=== PATIENT | female | born 1990 | race Caucasian/White ===

== ENCOUNTER 2023-07-12 14:23 | Outpatient (CLI) | payer OTHER, SELFPAY | END 2023-07-12 14:24 | disposition home or self-care (01) | PROVIDERS: Visit Provider Obstetrics & Gynecology | DX: Q51.28 Other and unspecified doubling of uterus (principal) | CPT/HCPCS: 84146; 84443 ==

== ENCOUNTER 2024-03-18 12:02 | Outpatient (REF) | payer OTHER, SELFPAY ==
--- OUTSIDE RECORDS SUMMARY | 2024-03-18 12:06 | XMS_ITS | Clinical Summary ---
Author Organization [email or web address] [facility] Address [place], [place] [address] Care Team Providers Care Director Clinical Applications Name Role Phone Pcp, No Primary Care Provider Unavailabl e Allergies No known active allergies Medications No known medications Active Problems Problem Noted Date Diagnosed Date Stress fracture of fibula 05/26/2009 Social History Tobacco Use Types Packs/Day Years Used Date Smoking Tobacco: Never Smokeless Tobacco: Never Alcohol Use Standard Drinks/Week Comments Not Asked 0 (1 standard drink = 0.6 oz pur e alcohol) Sex and Gender Information Value Date Recorded Sex Assigned at Not on file Gender Identity Not on file Sexual Orientation Not on file Obstetrics History Last Filed Vital Signs Vital Sign Reading Time Taken Comments Blood Pressure 116/61 10/01/2013 12:11 PM CDT Pulse 97 10/01/2013 12:11 PM CDT Temperature 36.7 ??C (98.1 ??F) 10/01/2013 12:11 PM C DT Respiratory Rate 16 10/01/2013 12:11 PM CDT Oxygen Saturation 98% 10/01/2013 12:11 PM CDT ra Inhaled Oxygen Concentration - - Weight 46.3 kg (102 lb) 05/26/2009 10:43 AM STAFF RESEARCH SCIENTIST Height - - Body Mass Index - - Plan of Treatment Health Maintenance Due Date Last Done Comments Tdap 07/14/2002 Depression screening for age 12+ 2003 HIV for age 15-65 07/14/2006 BMI (ht and wt on same day) for age 18+ 07/14/2009 Hepatitis C screening for ag e 18-79 07/14/2009 Tetanus booster 2011 Pap test for age 21-65 03/10/2021 8, 03/10/2018, 06/17/2015 COVID-19 vaccine series (2023- season) 2024 Influenza for age 9-49 01/05/2024 Pneumococcal series for age 6-64 Aged Out No longer eligible b ased on patient's age to complete this topic Procedures Procedure Name Priority Date/Time Associated Diagnosis Comments BUILDING ASSOCIATE THIN PREP PAP SCREEN IMAGED Routine 03/10/2018 12:00 PM STAFF RESEARCH SCIENTIST from Last 3 Months or Most Recently Relevant to Health Maintenance Results * BUILDING ASSOCIATE THIN PREP PAP SCREEN IMAGED (03/10/2018 12:00 PM STAFF RESEARCH SCIENTIST) Case Report Gynecologic Cytology Report ? Case: [id number] ? Authorizing Provider: ??Tracy Cornejo MD ? Collected: ? 03/10/2018 1200 ? First Screen: ?Divya Tello ? Received: ?03/12/2018 0926 ? Specimen: ?BUILDING ASSOCIATE ThinPrep Vial Screening, Cervical, right cervix ? 03/21/2018 5:57 PM STAFF RESEARCH SCIENTIST [facility] INTERPRETATION/ RESULT NEGATIVE FOR INTRAEPITHELIAL LESION OR MALIGNANCY (NIL) (none) 03/21/2018 5:57 PM STAFF RESEARCH SCIENTIST [facility] IMEN ADEQUACY Satisfactory for evaluation No endocervical component seen in a patient 03/21/2018 5:57 PM STAFF RESEARCH SCIENTIST [facility] HPV REQUEST HPV if ASCUS 03/21/2018 5:57 PM STAFF RESEARCH SCIENTIST [facility] Date of LMP 12/23/2017 03/21/2018 5:57 PM STAFF RESEARCH SCIENTIST [facility] Last Pap Date 06/17/2015 03/21/2018 5:57 PM STAFF RESEARCH SCIENTIST [facility] Last Pap Result NIL 8 5:57 PM STAFF RESEARCH SCIENTIST [facility] Menstrual Status 03/21/2018 5:57 PM STAFF RESEARCH SCIENTIST [facility] Automated Review Successful 03/21/2018 5:57 PM STAFF RESEARCH SCIENTIST [facility] Comment:Specimen processed s uccessfully by automated cyber security administrator device, ThinPrep Imaging System, [employer] Note The pap test is a screening technique, not a diagnostic procedure. ??It is used primarily to screen for squamous cancers and precursor lesions. ??Published studies have shown that it is subject to both false negative and false positive results. ??The pap test should not be used as the sole means to diagnose or exclude pre-malignant and malignant lesions. Cytology is screened and interpreted at [facility] - [address], [place] [address] and [facility] - [address]; [place] [address] [address] [facility] - [address]; [place] [address] and [facility] [address]; [place] [address] 03/21/2018 5:57 PM STAFF RESEARCH SCIENTIST [facility] Other (Cervical) 03/10/2018 12:00 PM STAFF RESEARCH SCIENTIST 03/12/2018 9:26 AM STAFF RESEARCH SCIENTIST Tracy Cornejo MD PATHOLOGY/CYTOLOG Y [facility] [address] [place] [address], [place] from Last 3 Months or Most Recently Relevant to Health Maintenance Care Teams Director Clinical Applications Relationship Specialty Start Date End Date Pcp, No . PCP - General 10/01/13
[2024-03-19 19:18] LABS: Estradiol Premenol Female <20 pg/mL
[2024-03-20 00:56] LABS: Prolactin 6.5 ng/mL (2.8-29.2)
[2024-03-20 16:57] LABS: Luteinizing Hormone, Serum 5.4 IU/L
[2024-03-20 18:21] LABS: Anti-Mullerian Hormone 2.319 ng/mL (0.176-11.705)
== END 2024-03-18 12:03 | disposition home or self-care (01) ==
LOC: NPINS 12:02
PROVIDERS: Visit Provider Obstetrics & Gynecology
DX: Z31.41 Encounter for fertility testing (principal)
CPT/HCPCS: 82670; 83001; 83002; 83520; 84146

== ENCOUNTER 2024-03-23 08:43 | Outpatient (CLI) | payer OTHER, SELFPAY ==
--- NOTE | 2024-03-23 09:15 | CRLHL7_ITS ---
For Patients: As a result of the Century Cures Act, medical imaging exams and procedure reports are released immediately into your electronic medical record. You may view this report before your referring provider. If you have questions, please contact your health care provider. Indication: Fertility testing, hx of didelphic uterus, now unicornate (left removed) Technique: Routine hysterosalpingogram. Fluoroscopic time 49 seconds. IMPRESSION: Unicornuate uterine cavity on the right with normal patency of the right fallopian tube with spillage into the peritoneal cavity. No filling defect. No obstruction. Dictated by Figueroa Laura MD @ 03/23/2024 11:16:58 AM (Electronically Signed)
--- NOTE | 2024-03-23 11:46 | W.PM.GYNPROC ---
Procedure Note Date of procedure: 03/23/24 Will [facility] bill your pro fee for this procedure?: Yes Pre-op diagnosis: 1. 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 2. Secondary female infertility. Post-op diagnosis: Same. Procedure: Hysterosalpingogram. Anesthesia: none Complications: None. Surgeon: Bettye Solomon MD Condition: stable Findings: 2 cervices: one at 5 o'clock with normal-appearing os, the second slightly superior at 11 o'clock with os partially covered by tissue fold, visualized by moving tissue slightly to the patient's left. Unicornuate-appearing uterus, deflected to the patient's right, with normal caliber right fallopian tube, patent. Procedure Description: After obtaining informed consent, the patient was placed in the dorsal lithotomy position on the x-ray table. An open-sided bivalve speculum was introduced into the vagina and the cervices visualized. The superior cervical os (11 o'clock) was difficult to visualize, but there was cervical mucous extruding form behind the fold of tissue that was partially covering the os. The cervices and vagina were then prepped with Betadine. Given previous documentation that the inferior cervical canal at 5 o'clock was blind-ending and noncommunicating with the right uterine horn, I did not cannulate that cervix. I attempted to pass an os finder through the superior cervical os, but was unable to do so because of the obstructing tissue fold, even with use of a tenaculum. Finally, I gently grasped the overlying tissue fold and displaced it 1-2 mm to the patient's left, and was able to clearly visualize the underlying cervical os. A balloon tipped double-lumen catheter was then gently inserted through the cervical opening into the uterine cavity to the level of the fundus. The balloon was insufflated with 3 mL of air and pulled back slightly. The speculum was removed. The patient was repositioned in the supine position, covered, and the radiologist was called to the room. A hysterosalpingogram was then performed. A total of 9 cc of Optiray 300 water soluble contrast dye was injected through the double-lumen catheter under moderate pressure. There was immediate fill of the uterine cavity to the right cornua and immediate fill of the right fallopian tube and free spillage of dye into the pelvis. The balloon was deflated and additional pictures taken to further assess the uterine cavity. The catheter was removed. The patient tolerated the procedure well, though she did have moderate cramping discomfort during and just after the procedure. She was discharged to home in stable condition and to [facility].
== END 2024-03-23 08:44 | disposition home or self-care (01) ==
LOC: RAD 08:43
PROVIDERS: Visit Provider Obstetrics & Gynecology
DX: Z31.41 Encounter for fertility testing (principal); Q51.4 Unicornate uterus
CPT/HCPCS: 58340; 74740; A4649; Q9967

== ENCOUNTER 2024-06-22 15:36 | Outpatient (CLI) | payer BC, SELFPAY | END 2024-06-22 15:37 | disposition home or self-care (01) | LOC: NFLDREF 06-28 09:59 | PROVIDERS: Visit Provider Obstetrics & Gynecology | DX: Z34.81 Encounter for supervision of other normal pregnancy, first trimester (principal) | CPT/HCPCS: 84702 ==

== ENCOUNTER 2024-06-26 09:46 | Outpatient (CLI) | payer BC, SELFPAY | END 2024-06-26 09:47 | disposition home or self-care (01) | LOC: US 09:47 | PROVIDERS: Visit Provider Obstetrics & Gynecology | DX: Z34.91 Encounter for supervision of normal pregnancy, unspecified, first trimester (principal); Z3A.01 Less than 8 weeks gestation of pregnancy | CPT/HCPCS: 76817 ==

== ENCOUNTER 2024-07-14 13:53 | Outpatient (CLI) | payer BC, SELFPAY ==
--- NOTE | 2024-07-14 14:00 | CRLHL7_ITS ---
For Patients: As a result of the Century Cures Act, medical imaging exams and procedure reports are released immediately into your electronic medical record. You may view this report before your referring provider. If you have questions, please contact your health care provider. INDICATION: Follow-up viability. TECHNIQUE: Ultrasound OB pelvis transabdominal and transvaginal. Real-time guillermo-scale imaging of the pelvis was performed. COMPARISON: Ob ultrasound June 26, 2024. FINDINGS: Intrauterine gestation: Single. G sac is identified within the superior portion of uterus as opposed to lower uterine segment on a previous ultrasound. heart activity (bpm): Regular, 171. [place]-rump length: 1.7 cm. Estimated ultrasound age: 8 weeks 1 day. Estimated gestational age by LMP: 8 weeks 4 day ROSA by ultrasound: 02/22/2025 ROSA by LMP: 02/19/2025. Yolk sac: Normal. Perigestational hemorrhage: Small subchorionic hemorrhage measuring 2.0 x 1.2 x 1.9 cm.. Ovaries and adnexa: Unremarkable. Corpus luteal cyst is identified on right side. Suspicious pelvic fluid collections: None. IMPRESSION: 1. Single viable intrauterine with estimated gestational age of 8 weeks 1 day an ROSA of 02/22/2025. 2. Small subchorionic hemorrhage. Dictated by Manjeet Barkley MD @ 07/15/2024 11:11:59 AM (Electronically Signed)
== END 2024-07-14 13:54 | disposition home or self-care (01) ==
LOC: US 13:53
PROVIDERS: Visit Provider Physician Assistant
DX: Z34.91 Encounter for supervision of normal pregnancy, unspecified, first trimester (principal); O20.9 Hemorrhage in early pregnancy, unspecified; Z3A.08 8 weeks gestation of pregnancy
CPT/HCPCS: 76817

== ENCOUNTER 2024-07-14 15:10 | Outpatient (CLI) | payer BC, SELFPAY | END 2024-07-14 15:11 | disposition home or self-care (01) | PROVIDERS: Visit Provider Physician Assistant | DX: Z34.91 Encounter for supervision of normal pregnancy, unspecified, first trimester (principal); Z3A.08 8 weeks gestation of pregnancy | CPT/HCPCS: 82565; 82570; 83020; 83021; 84156; 84450; 84460; 84520; 85660; 86592; 86703; 86704; 86706; 86762; 86787; 86803; 86850; 86900; 86901; 87086; 87340 ==

== ENCOUNTER 2024-09-11 09:15 | Outpatient (CLI) | payer BC, SELFPAY | END 2024-09-11 09:16 | disposition home or self-care (01) | LOC: NFLDREF 09-12 08:08 | PROVIDERS: Visit Provider Obstetrics & Gynecology | DX: O26.892 Other specified pregnancy related conditions, second trimester (principal); Q60.0 Renal agenesis, unilateral; Z3A.16 16 weeks gestation of pregnancy | CPT/HCPCS: 82570; 84156 ==

== ENCOUNTER 2024-12-02 09:05 | Outpatient (CLI) | payer BC, SELFPAY | END 2024-12-02 09:06 | disposition home or self-care (01) | LOC: NFLDREF 12-10 03:23 | PROVIDERS: Visit Provider Obstetrics & Gynecology | DX: Z34.93 Encounter for supervision of normal pregnancy, unspecified, third trimester (principal); Z3A.28 28 weeks gestation of pregnancy | CPT/HCPCS: 86592 ==

== ENCOUNTER 2024-12-02 09:08 | Outpatient (CLI) | payer BC, SELFPAY ==
[2024-12-02 10:42] LABS: Protein Creatinine Ratio Urine 0.25 (0-0.19)
== END 2024-12-02 09:09 | disposition home or self-care (01) ==
LOC: NPINS 09:09
PROVIDERS: Visit Provider Internal Medicine Nephrology
DX: R39.89 Other symptoms and signs involving the genitourinary system (principal); R80.9 Proteinuria, unspecified
CPT/HCPCS: 82570; 84156

== ENCOUNTER 2024-12-02 09:10 | Outpatient (CLI) | payer BC, SELFPAY ==
--- NOTE | 2024-12-02 09:15 | CRLHL7_ITS ---
For Patients: As a result of the Cures Act, medical imaging exams and procedure reports are released immediately into your electronic medical record. You may view this report before your referring provider. If you have questions, please contact your health care provider. 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 Real-time guillermo-scale imaging of the fetus was performed. COMPARISON: Ob ultrasound 09/23/2024 FINDINGS: Gestation: Single Presentation: Cephalic Placenta location: Posterior, known marginal cord insertion is not well appreciated on this exam heart rate: 139 bpm Cervix: Both the right cervix and residual left cervix are not visualized. Single deepest pocket: 5.6 cm Biometry: BPD: 6.8 cm, 5th percentile HC: 24.6 cm, less than 3rd percentile AC: 24 cm, 30th percentile FL: 5.4 cm, 29th percentile FL/AC ratio: 22nd percentile HC/AC ratio: 1.03 Biometry Conclusions: US/AUA: 27 weeks, 5 days. ROSA: 02/26/2025 US/LMP: 28 weeks, 5 days. ROSA: 02/19/2025 Weight: 19 percentile. 1178 grams IMPRESSION: Single live intrauterine gestation measuring 27 weeks, 5 days with ROSA by ultrasound of 02/26/2025. Ultrasound dates are 7 days behind clinical dates. Estimated weight lies in the 19 percentile, with the head circumference less than 3rd percentile, and biparietal diameter in the 5th percentile. Dictated by Eunice Agarwal MD @ 12/07/2024 8:34:30 AM (Electronically Signed)
== END 2024-12-02 09:11 | disposition home or self-care (01) ==
LOC: US 09:10
PROVIDERS: Visit Provider Obstetrics & Gynecology
DX: Z34.92 Encounter for supervision of normal pregnancy, unspecified, second trimester (principal); Q51.28 Other and unspecified doubling of uterus; Z3A.27 27 weeks gestation of pregnancy
CPT/HCPCS: 76816; 82570; 84156; 86592

== ENCOUNTER 2024-12-15 12:34 | Outpatient (CLI) | payer BC, SELFPAY ==
[2024-12-15 14:02] LABS: Protein Creatinine Ratio Urine 0.26 (0-0.19)
== END 2024-12-15 12:35 | disposition home or self-care (01) ==
LOC: NPINS 12:36
PROVIDERS: Visit Provider Internal Medicine Nephrology
DX: O12.10 Gestational proteinuria, unspecified trimester (principal); Z3A.30 30 weeks gestation of pregnancy
CPT/HCPCS: 82570; 84156

== ENCOUNTER 2025-01-15 10:09 | Outpatient (CLI) | payer BC, SELFPAY ==
[2025-01-15 12:18] LABS: Protein Creatinine Ratio Urine 0.11 (0-0.19)
== END 2025-01-15 10:10 | disposition home or self-care (01) ==
LOC: NPINS 10:10
PROVIDERS: Visit Provider Internal Medicine Nephrology
DX: O12.13 Gestational proteinuria, third trimester (principal); Z3A.35 35 weeks gestation of pregnancy
CPT/HCPCS: 82570; 84156

== ENCOUNTER 2025-01-15 10:24 | Outpatient (CLI) | payer BC, SELFPAY ==
--- NOTE | 2025-01-15 10:15 | CRLHL7_ITS ---
For Patients: As a result of the Century Cures Act, medical imaging exams and procedure reports are released immediately into your electronic medical record. You may view this report before your referring provider. If you have questions, please contact your health care provider. INDICATION: Marginal Cord Insert and Duplication of the Uterus. (Sic) COMPARISON: None available. TECHNIQUE: Grayscale pelvic ultrasound via a transabdominal approach. FINDINGS: number: 1 Position: Cephalic. Placental Position: Right posterior. Amniotic fluid: DVP 5.4cm. heart rate: 144bpm. BPD: 8.3cm; 33 weeks and 3 days. Percentile:13% HC: 29.2cm; 32 weeks and 2 days. Percentile:<3% AC: 29.0cm; 33 weeks and 0 days. Percentile:9% FL: 6.2cm; 32 weeks and 2 days. Percentile:<3% US EGA: 32 weeks and 5 days US ROSA: 03/07/2025 Established ROSA: 02/19/2025 EFW: 2042gm, +/-306gm, corresponding to the 5th percentile for the established ROSA. BPP Score: Fluid: 2 Breathin Movement: 2 Tone: 2 Total: 8 Umbilical artery Doppler shows a systolic-diastolic ratio of 2.7. For the previously established gestational age of 35 weeks 0 days, the 95th percentile for SD ratio is 3.49. IMPRESSION: 1. Normal BPP score (8/8). 2. biometry corresponds to an EFW at the 5th percentile for the previously established gestational age consistent with small for gestational age. Normal umbilical artery Doppler systolic diastolic ratio of 2.7. 3. Re-demonstration a head circumference measuring 292 mm, corresponding to less than the 3rd percentile. For the previously established gestational age of 35 weeks 2 standard deviations below the mean is 290 mm. This is concerning for microcephaly. Clinical correlation is recommended as the potential significance of this finding. Dictated by Zac Amaya MD @ 01/15/2025 12:12:47 PM (Electronically Signed)
== END 2025-01-15 10:25 | disposition home or self-care (01) ==
PROVIDERS: Visit Provider Obstetrics & Gynecology
DX: O43.193 Other malformation of placenta, third trimester (principal); Z3A.35 35 weeks gestation of pregnancy
CPT/HCPCS: 76816; 76819; 76820

== ENCOUNTER 2025-01-19 09:17 | Outpatient (CLI) | payer BC, SELFPAY ==
--- NOTE | 2025-01-19 09:15 | CRLHL7_ITS ---
For Patients: As a result of the Cures Act, medical imaging exams and procedure reports are released immediately into your electronic medical record. You may view this report before your referring provider. If you have questions, please contact your health care provider. OB ULTRASOUND FOLLOW-UP/LIMITED, 01/19/2025 CLINICAL HISTORY: IUGR, Removal of left didelphis uterus. TECHNIQUE: Real time guillermo scale imaging of the fetus was performed. Transabdominal imaging performed. COMPARISON: 01/15/2025, 12/02/2024. FINDINGS: LMP: 05/15/2024. ROSA by LMP: 02/19/2025. GA: 35 weeks 4 days. Gestation: Single. Cervix: Not visualized. Positioning: Vertex. Amniotic Fluid: 10.6 cm ABEBA. 4.4 cm SDP. Placenta: Technique: TA. Placenta Position: Posterior. Dopplers: Heart Rate: 144 bpm. Umbilical Artery: 2.2 S/D. IMPRESSION: Umbilical artery S/D ratio 2.2, within normal limits. Figueroa Laura M.D. Diagnostic Radiologist [email or web address] Transcribed: 11:03 am DW/Dictated by: Figueroa Laura MD @ 01/19/2025 10:17:00 AM (Electronically Signed)
== END 2025-01-19 09:18 | disposition home or self-care (01) ==
LOC: US 09:17
PROVIDERS: Visit Provider Obstetrics & Gynecology
DX: O36.5930 Maternal care for other known or suspected poor fetal growth, third trimester, not applicable or unspecified (principal); Z3A.35 35 weeks gestation of pregnancy
CPT/HCPCS: 76815; 76820

== ENCOUNTER 2025-01-25 07:21 | Outpatient (CLI) | payer BC, SELFPAY ==
--- NOTE | 2025-01-25 07:15 | CRLHL7_ITS ---
For Patients: As a result of the Century Cures Act, medical imaging exams and procedure reports are released immediately into your electronic medical record. You may view this report before your referring provider. If you have questions, please contact your health care provider. LMP: 05/15/2024. ROSA by LMP: 02/19/2025. GA: 36w, 3d. Prior Surgery: Left duplicated uterus removed. Comparisons: 01/19/2025, 01/15/2025, 12/02/2024. Single. INDICATION: Intrauterine growth retardation. CERVIX: Not visualized. POSITIONING: Vertex. AMNIOTIC FLUID: 10.7 cm ABEBA. 3.5 cm SDP. PLACENTA: Technique: Transabdominal. PLACENTA POSITION: Posterior. DOPPLER: heart rate: 141 bpm. Umbilical artery: 2.5 S/D >34w=<3.5. IMPRESSION: 1. Amniotic fluid single deepest pocket 3.5 cm. ABEBA 10.7 cm. 2. Umbilical artery S/D ratio 2.5, within normal limits. Figueroa Laura M.D. Diagnostic Radiologist [email or web address] bM/Dictated by: Figueroa Laura MD @ 01/25/2025 3:37:00 PM (Electronically Signed)
== END 2025-01-25 07:22 | disposition home or self-care (01) ==
LOC: US 07:23
PROVIDERS: PCP Family Medicine; Visit Provider Obstetrics & Gynecology
DX: O36.5930 Maternal care for other known or suspected poor fetal growth, third trimester, not applicable or unspecified (principal); Z3A.36 36 weeks gestation of pregnancy
CPT/HCPCS: 76815; 76820

== ENCOUNTER 2025-01-29 05:49 | Inpatient (IN) | payer BC, SELFPAY ==
[2025-01-29] VITALS (24 sets, daily range): BP systolic 110–137; BP diastolic 65–84; PULSE 62–93; RESP 16–18; TEMP 36.2–37; O2SAT 96–100; BMI 31.5
[2025-01-29] MEDS: LACTATED RINGERS 1000 ML 1,000 ML 1200 ML IV (06:24)
[2025-01-29 06:31] LABS: Hematocrit* 36.1 % (33.0-51.0); Hemoglobin* 11.9 gm/dL (12.0-16.0); Immature Granulocytes Abs Auto 0.04 K/uL (0.00-0.30); Immature Granulocytes Pct Auto 0.5 %; Lymphocytes Absolute Auto 1.92 K/uL (0.90-2.90); Mean Corpuscular HGB Conc 33 gm/dL (32-36); Mean Corpuscular Hemoglobin 30 pg (26-34); Mean Corpuscular Volume 90 fL (80-100); RDW Coefficient of Variation % 13.4 % (11.5-15.5); Red Blood Count* 4.02 m/uL (4.00-5.20); White Blood Count* 8.03 K/uL (4.50-11.00)
[2025-01-29 06:33] LABS: Slide Review Reflex No
--- NOTE | 2025-01-29 06:59 | W.PM.LDBA ---
Subjective History of Present Illness Date Seen: 01/29/25 Narrative: Patient is being admitted to Labor and Delivery for 01/29/25. She is a 34 year old at 37 0/7 weeks gestation. Her full history and physical was dictated by Dr. Cornejo on 01/15. Please see this for details. Specific Issues/Plans [id number] Partner: , Dorian Children: Mary Rainey Baby: Girl! Declines gonorrhea /chlamydia H&P: 01/15 Dr. Cornejo # Congenital duplication of uterus: Uterine didelphys. L pato-hysterectomy and left salpingectomy 06/19/20 at time of 2nd Pato-hysterectomy involved opening right fundus. Cervices are in unusual locations Serial US for growth at 28 and 34 weeks Delivery at 37 weeks: Scheduled for 02/[address] Cornejo # Suspected growth restriction diagnosed 01/15 EFW 2042 g = 4.6%, AC 9%, BPD 12.6%, HC <3%, FL <3%, normal doppler, SDP 5.4 cm Weekly to twice weekly testing until delivery, to include UA doppler / ABEBA and NST Request peds at delivery #Marginal cord insertion Serial US for growth at 28 and 34 weeks # history of x 2, with pato-hysterectomy with the second Pato-hysterectomy involved opening right fundus. Repeat at 37 weeks; pending recommendations from [facility] recommends 39 weeks in their report; called to clarify: 37 weeks # history of preeclampsia with severe features ASA 81 mg Baseline pre E labs: Normal with the exception of pr/cr ratio: .45H 24 hour urine for protein: 367 Nephrology consult 11/18 To see again 04/2025 Spot prot:creatine each visit # solitary left kidney 11/18/2024: Protein to creatinine ratio at each visit with OB Repeat 24 hour urine April #Fresh test for 1hr GTT Imagin09/23/24: Level 2. 18 weeks, 5 days. Posterior placenta without previa. Marginal cord insertion. MVP 3.8 cm. EFW 37%, AC 43%, normal anatomy. Two cervices, both closed. 12/02: cephalic, SDP 5.6 cm, EFW 19%, AC 30%, BPD 4.9%, HC <3%, FL 29% 01/15: cephalic, EFW 2041 g = 4.6%, AC 9%, BPD 12.6%, HC <3%, FL <3%, normal doppler, SDP 5.4 cm Vaccinations: COVID: no Flu: no Tdap: Declined RSV: declined Last pap: [Only high-risk abnormal pap results in problem list] OB - Problem Based A/P Additional Plan (1) Previous delivery affecting : Status: Acute (2) growth restriction antepartum: Status: Acute OB Exam Physical Exam Vital signs: Temp Pulse Resp BP 97.8 F 74 16 130/80 01/29/25 06:13 01/29/25 06:13 01/29/25 06:13 01/29/25 06:13 Narrative: Physical exam: General: No acute distress Psych: Alert and oriented x3, full affect HEENT: Normocephalic, atraumatic Heart: Regular rate and rhythm, no murmur rub or gallop Lungs: Clear to auscultation bilaterally Abdomen: soft, nontender, gravid Lower extremities: No edema or erythema
[2025-01-29] MEDS: miSOPROStoL 800 MCG/4 TABLET PR (08:30)
--- NOTE | 2025-01-29 09:05 | P.NB_ITS ---
Nerve Block Nerve Block Time Seen by Provider: 09:21 Date Seen: 01/29/25 Type of block requested by surgeon for post-operative analgesia: TAP Side: bilateral Time out performed: Yes Verification of patient name: Yes Verification of date of : Yes Site marking: site marked Name of person performing procedure: Cheng Diaz Continuous monitoring Was continuous monitoring of O2 sat, B/P, property assessment monitor, recorded every 15 minutes?: Yes Procedure Checklist: sterile prep, needles and gloves Ultrasound guided. Images saved: Yes Medications given in 5ml increments after negative aspiration: Marcaine %: 0.25 mL: 30 Needle gauge: 20 and Exparel mL: 10 Needle gauge: 20 Patient tolerated procedure well: Yes Additional comments: Injected in 5 mL increments after negative aspiration Block Charges Block Charge (with Pro Fee): TAP Bilateral Use of Ultrasound Machine for Block: Yes- US Guidance/pain block
--- NOTE | 2025-01-29 09:06 | P.ANES_ITS ---
Anesthesia Charges Start Date/Time Anesthesia Start Date: 01/29/25 Anesthesia Start Time: 07:23 Stop Date/Time Anesthesia Stop Date: 01/29/25 Anesthesia Stop Time: 09:29 Coding CPT Codes CPT Codes: ANESTH CS DELIVERY - 43196 ([id number]) P2 - PATIENT W/MILD SYST DISEASE, QK - BABBITTER 2-4 CNCRNT ANES PROC, QX - VACUUM CLEANER ASSEMBLER SVC W/ MD MED DIRECTION
--- NOTE | 2025-01-29 09:06 | W.ANESCHARGE ---
Anesthesia Charges Start Date/Time Anesthesia Start Date: 01/29/25 Anesthesia Start Time: 07:23 Stop Date/Time Anesthesia Stop Date: 01/29/25 Anesthesia Stop Time: 09:29 Coding CPT Codes CPT Codes: ANESTH CS DELIVERY - 60287 ([id number]) P2 - PATIENT W/MILD SYST DISEASE, QK - BLANKET WASHER 2-4 CNCRNT ANES PROC, QX - RN APPEALS SVC W/ MD MED DIRECTION
--- NOTE | 2025-01-29 09:11 | P.ANES_ITS ---
Anesthesia Charges Start Date/Time Anesthesia Start Date: 01/29/25 Anesthesia Start Time: 07:23 Stop Date/Time Anesthesia Stop Date: 01/29/25 Anesthesia Stop Time: 09:29 Coding CPT Codes CPT Codes: ANESTH CS DELIVERY - 25960 ([id number]) P2 - PATIENT W/MILD SYST DISEASE, QK - SASH MAKER 2-4 CNCRNT ANES PROC, QX - BIOMEDICAL ENGINEERING INTERNSHIP SVC W/ MD MED DIRECTION
--- NOTE | 2025-01-29 09:11 | W.ANESCHARGE ---
Anesthesia Charges Start Date/Time Anesthesia Start Date: 01/29/25 Anesthesia Start Time: 07:23 Stop Date/Time Anesthesia Stop Date: 01/29/25 Anesthesia Stop Time: 09:29 Coding CPT Codes CPT Codes: ANESTH CS DELIVERY - 35431 ([id number]) P2 - PATIENT W/MILD SYST DISEASE, QK - MUSIC LEADER 2-4 CNCRNT ANES PROC, QX - MANAGER RETENTION SVC W/ MD MED DIRECTION
[2025-01-29] MEDS: LACTATED RINGERS 1000 ML 1,000 ML 125 ML IV (10:21)
--- NOTE | 2025-01-29 10:35 | W.PM.H&PU ---
History & Physical Update History & Physical Update H&P Reviewed and patient assessed: No changes noted
--- NOTE | 2025-01-29 10:35 | PM.OBPRCCS ---
Procedure Date of procedure: 01/29/25 Pre-op diagnosis: 1. 37 0/7 weeks gestation. 2. History of section x2. 3. History of congenital duplication of uterus, s/p rani-hysterectomy of left uterus and left salpingectomy during last , with opening of right fundus. 4. IUGR. Post-op diagnosis: same Procedure Done: Global Will [facility] bill your pro fee for this procedure?: Yes Blood Loss Measurement Type: QBL (774 mL) Bakri Used: No IV fluids (mL): 2,000 Urine Output (mL): 200 Urine Output Comment: clear Surgeon: Bettye Solomon MD Supervising Film Or Videotape Editor: Shira Leonardo, Anesthesia Type: Spinal and TAP Block Findings: Extensive adhesions between the fascia, rectus muscles, peritoneum, omentum, and uterine serosa. Pathologic adhesion between the mid body of the uterus and the anterior abdominal wall to the right of midline. Moderate adhesions between the bladder and lower uterine segment. Live-born female infant, cephalic presentation, loose nuchal cord x1, Apgars 7 and 9 at 1 and 5 minutes respectively. Weight 5 lb 1 oz. Small unicornuate uterus. Extremely thin lower uterine segment which was bulging prior to hysterotomy incision. Ovaries and right tube nonvisualized. Procedure Name: Repeat low transverse section with extensive lysis of adhesions. Procedure Description: After obtaining informed consent, the patient was taken to the operating room where spinal anesthesia was obtained and found to be adequate. She was prepared and draped in the normal sterile fashion in the dorsal supine position with a leftward tilt. A Pfannenstiel skin incision was made with a scalpel along the line of the patient's previous Pfannenstiel scar. This incision was carried down to the underlying layer of fascia with the Bovie. The fascia was incised in the midline and the incision extended laterally. The superior and inferior aspects of the fascial incision were grasped with Kaelyn clamps, elevated and the underlying rectus muscles dissected off sharply and with electrocautery. This dissection took an increased amount of time given the dense adhesions. The omentum was densely adherent to both the uterine serosa and the anterior peritoneum. The adhesions between the omentum and anterior peritoneum were isolated, doubly clamped, transected, and suture ligated with 0 Vicryl. Filmy adhesions between the omentum in uterine serosa and peritoneum were taken down with electric cautery. There was a dense pathologic adhesion between the peritoneum and uterine serosa to the right of midline that was doubly clamped, transected, and suture ligated with 0 Vicryl. The rectus muscles were then in the midline. The adhesions between the bladder and lower uterine segment were taken down bluntly. The Alin O retractor was then placed into the incision. The distal lower uterine segment was found to be bulging. The lower uterine segment was then incised in a transverse fashion above the bulging area with the scalpel. Upon entry into the uterus, clear amniotic fluid was noted. The uterine incision was extended laterally with blunt finger fractionation. The infant's head was delivered atraumatically, the nuchal cord was reduced over the head, and the remainder of the was delivered. The nose and mouth were suctioned with the bulb suction. The cord was doubly clamped and cut after a 30 second delay, and the infant was handed off the field to Karlie Osorio, for evaluation. The placenta was delivered spontaneously with umbilical cord traction and fundal massage. The uterus was cleared of all clots and debris. There was uterine atony with some brisk bleeding initially, that was controlled with uterine massage, IV Pitocin, tranexamic acid 1000 mg IV and 800 mcg misoprostol per rectum administered by the circulating nurse under the drape. The hysterotomy incision was then carefully inspected. There was an inferior extension along the right lateral aspect, and there was a separate transverse tear in the lower uterine segment approximately 1 cm below the hysterotomy incision that extended for about 3 cm. The transverse tear was reapproximated in a running fashion very carefully with a 0 Vicryl suture, as the tissues were quite thin. A separate figure of X suture of 0 Vicryl was placed to reinforce an area that tore through during the reapproximation. The inferior extension was also reapproximated in a running fashion with 0 Vicryl. Finally, the hysterotomy incision was reapproximated in a running locking fashion with a 0 chromic suture. The decision was made not to imbricate due to the thinness of the tissues. The gutters were irrigated and suctioned. Hemostasis was obtained using electrocautery where appropriate, and suture ligation where needed. Paula was placed over the raw edges. All instruments and retractors were removed. The anterior peritoneum was not reapproximated due to concerns about other close omental and bowel adhesions. The subfascial tissues were carefully inspected and hemostasis assured. The fascia was reapproximated in a running fashion with a looped 0 Maxon suture. The subcutaneous tissues were copiously irrigated. Hemostasis was assured. The skin was closed in a subcuticular fashion with 4-0 Vicryl. Surgical glue and dressing were applied. The patient tolerated the procedure well. Sponge, lap, needle, and instrument counts were reported as correct x2. The patient was taken to the recovery room, awake, and in stable condition. She did receive 2 grams of IV Ancef preoperatively. Complications: None. Pathology: specimen obtained, sent to pathology (Placenta) Surgery Debrief Performed: Yes Condition: stable Disposition: floor
[2025-01-30 03:41] VITALS: BP 105/65; PULSE 90; RESP 18; TEMP 36.6; O2SAT 97
[2025-01-30 06:12] LABS: Hemoglobin* 8.9 gm/dL (12.0-16.0)
--- NOTE | 2025-01-30 08:01 | PM.OBPNVD1 ---
OB - PN:Subj Subjective Date Seen: 01/30/25 Interval history: Lorna is a 34-year-old G5 now P 3-0-2-3 woman who is status post repeat on 01/29/2025 at 37 weeks, 0 days gestation. She has uterine didelphys but is status post left rani hysterectomy and left salpingectomy 06/19/2020 at time of 2nd cesareans. Her this time was in her right uterus. Intraoperative findings were notable for extensive pelvic adhesions and extremely thin lower uterine segment which was bulging prior to hysterotomy incision. She was delivered of a female infant with Apgars of 7 and 9, weight 5 lb and 1 oz. Narrative: She has no complaints today. She is and that is going well. She had no pain throughout the day yesterday, and only has a little soreness today. She is ambulating without difficulty. She denies any heavy bleeding. She is passing flatus and tolerating a regular diet. OB - PN: Obj Exam Physical Exam: Vital signs: Temp Pulse Resp BP Pulse Ox O2 Del Method 98 F 90 18 105/65 97 Room Air 01/30/25 03:41 01/30/25 03:41 01/30/25 03:41 01/30/25 03:41 01/30/25 03:41 01/30/25 03:41 Narrative: General: Pleasant, no acute distress Heart: Regular rate and rhythm, no murmur or gallop Lungs: Clear to auscultation bilaterally Abdomen: Normoactive bowel sounds. Soft, nontender, fundus below umbilicus. Dressing clean, dry, and intact Lower extremities: No edema or erythema OB - PN: Obj Data Labs Labs: Laboratory Results - last 24 hr 01/30/25 05:52 Hgb 8.9 L OB - PN: A/P Delivery Assessment and Plan (1) S/P repeat low transverse : Status: Acute Assessment and Plan: Appropriate postoperative course. Anticipate discharge tomorrow. (2) Congenital duplication of uterus: Problem details: Uterine didelphys. L rani-hysterectomy 06/19/20. Status: Chronic (3) Proteinuria affecting : Status: Acute Assessment and Plan: She is to follow up with Nephrology . (4) Congenital absence of right kidney: Status: Chronic Assessment and Plan: As above (5) Anemia associated with acute blood loss: Status: Acute Assessment and Plan: Begin ferrous sulfate q.o.d. (6) History of 3 sections: Problem details: R uterus breech 09/24/18. L primary fundal , L rani-hysterectomy, L salpingectomy 06/19/20. Repeat right hemiuterus 01/29/25 Status: Acute Assessment and Plan: Very thin lower uterine segment on yesterday's . We discussed concerns with any future pregnancies. Plan day: 1 Plan: routine care
[2025-01-30 08:44] VITALS: BP 113/69; PULSE 83; RESP 18
[2025-01-30] MEDS: FERROUS SULFATE 325 MG TABLET PO (09:53)
[2025-01-30] MEDS: DOCUSATE SODIUM 100 MG CAPSULE PO (09:54)
[2025-01-30] MEDS: IBUPROFEN 600 MG TABLET PO ×2 (15:46→21:47)
[2025-01-30 15:47] VITALS: BP 121/74; PULSE 92; RESP 18; O2SAT 97
[2025-01-30] MEDS: ACETAMINOPHEN 500 MG TABLET 1000 MG PO (23:08)
[2025-01-30 23:09] VITALS: BP 116/74; PULSE 83; RESP 16; TEMP 36.8
[2025-01-31] MEDS: IBUPROFEN 600 MG TABLET PO ×2 (04:42→11:34)
[2025-01-31] MEDS: DOCUSATE SODIUM 100 MG CAPSULE PO (07:15)
[2025-01-31] MEDS: ACETAMINOPHEN 500 MG TABLET 1000 MG PO (07:15)
[2025-01-31 08:40] VITALS: BP 116/71; PULSE 80; RESP 16; TEMP 36.6; O2SAT 96
--- NOTE | 2025-01-31 09:59 | PM.OBDSVD1 ---
DS: Providers Provider Date Seen: 01/31/25 Date of admission: 01/29/25 05:49 Primary care physician: Sandrine Reece MD Admitting Clinician: Bettye Solomon MD Attending Physician on discharge: Bettye Soloomn MD Date of Discharge: 01/31/25 DS: Diagnosis Discharge Diagnosis (1) Anemia associated with acute blood loss: Status: Acute (2) S/P repeat low transverse : Status: Acute (3) Congenital absence of right kidney: Status: Chronic (4) Proteinuria affecting : Status: Acute Exam Narrative: Exam Narrative: General: Pleasant, no acute distress Heart: Regular rate and rhythm, no murmur or gallop Lungs: Clear to auscultation bilaterally Abdomen: Normoactive bowel sounds. Soft, nontender, fundus at umbilicus. Incision clean, dry, and intact Lower extremities: No edema or erythema Const: Vital Signs, click to edit/add: Vital Signs - 24 hr 01/30/25 15:47 01/30/25 23:09 01/31/25 08:40 Temperature 98.3 F 97.9 F Pulse Rate [Pulse Oximeter] 92 83 80 Respiratory Rate 18 16 16 Blood Pressure [Ri ght Arm] 121/74 116/74 116/71 Pulse Oximetry 97 96 Oxygen Delivery Me thod Room Air Room Air Room Air OB - DS: Summary Hospital Course Hospital Course: Lorna is a 34-year-old G5 now P 3-0-2-3 woman who is status post repeat on 01/29/2025 at 37 weeks, 0 days gestation. She has uterine didelphys but is status post left rani hysterectomy and left salpingectomy 06/19/2020 at time of 2nd cesareans. Her this time was in her right uterus. Intraoperative findings were notable for extensive pelvic adhesions and extremely thin lower uterine segment which was bulging prior to hysterotomy incision. She was delivered of a female infant with Apgars of 7 and 9, weight 5 lb and 1 oz. the patient has done well. Today, on day #2, she has no complaints. Pain is very well controlled. She is her daughter without difficulty. She denies any heavy bleeding. She is tolerating oral iron. Peripartum Data Procedures: Procedures Operation Date: 01/29/25 07:15 Actual Procedure Side Surgeon p Repeat Section with extensive lysis of adhesions Not Applicable Shira Leonardo MD [place] Inf[facility] Gender: Female Time Spent with Patient Time attestation: Total time spent providing and/or coordinating discharge services: Discharge Plan Discharge Disposition: Home, Self-Care Date of Admission: 01/29/25 05:49 Attending Provider on Discharge: Tracy Cornejo Primary Care Provider: Sandrine Reece Condition: Stable Anticipated Discharge Date/Time: 01/31/25 10:02 Discharge Medications: New oxycodone 5 mg Tablet 5 - 10 mg PO Q4H PRN (Reason: Pain) Qty: 20 0RF Lanolin (HPA) 100 % Cream 1 applic topical Q1H PRNQty: 0 0RF acetaminophen 500 mg Tablet 1,000 mg PO Q6H PRN (Reason: Pain) Qty: 0 0RF docusate sodium 100 mg Capsule 100 mg PO DAILY Qty: 0 0RF ibuprofen 600 mg Tablet 600 mg PO Q6H PRN (Reason: Pain) Qty: 0 0RF ferrous sulfate 325 mg (65 mg iron) Tablet 325 mg PO Q48H Qty: 0 0RF Continued cholecalciferol (vitamin D3) 10 mcg (400 unit) capsule 10 mcg PO QDAY [id number] 3 fatty no.1 27-1-300 mg capsule 1 cap PO DAILY Discharge Orders: Discharge Order (Routine); Ordered 01/31/25 Ordered By: Tracy Cornejo Patient Education: OB Over the Counter Medication Information, OB /Breast Feeding Discharge Diet: Regular Follow Up Appointments: Sandrine Reece MD [Primary Care Provider, Family Practice] Tracy Cornejo MD [Staff Physician, OCEANOGRAPHY TEACHER] Forms: Patient Belongings, [facility] Instructions
== END 2025-01-31 11:51 | disposition home or self-care (01) | DRG 540 ==
PROVIDERS: Obstetrics & Gynecology; Admitting Provider Obstetrics & Gynecology; PCP Family Medicine; Visit Provider Obstetrics & Gynecology
PROC: 10D00Z1 Extraction of Products of Conception, Low, Open Approach (ICD-10-PCS; CPT 59514; principal; 2025-01-29 07:15)
DX: O34.211 Maternal care for low transverse scar from previous cesarean delivery (principal); O36.5930 Maternal care for other known or suspected poor fetal growth, third trimester, not applicable or unspecified; G89.18 Other acute postprocedural pain; O99.892 Other specified diseases and conditions complicating childbirth; N73.6 Female pelvic peritoneal adhesions (postinfective); O90.81 Anemia of the puerperium; D62 Acute posthemorrhagic anemia; O12.14 Gestational proteinuria, complicating childbirth; Q60.0 Renal agenesis, unilateral; Z90.79 Acquired absence of other genital organ(s); Q51.21 Complete doubling of uterus; Z3A.37 37 weeks gestation of pregnancy; Z37.0 Single live birth
CPT/HCPCS: 01961; 36415; 64488; 76942; 85018; 85025; 86592; 86850; 86900; 86901; 88307; A4314; A9270; J0665; J0666; J0690; J1100; J1885; J2274; J2371; J2405; J2590; J3010; J7120

== ENCOUNTER 2025-04-06 09:37 | Outpatient (CLI) | payer BC, SELFPAY ==
[2025-04-06 11:18] LABS: Appearance Urine Clear (Clear)
[2025-04-06 11:34] LABS: Protein Creatinine Ratio Urine 0.03 (0-0.19)
[2025-04-06 11:35] LABS: Chloride* 99 mmol/L (96-114); Sodium* 140 mmol/L (135-149)
[2025-04-06 11:38] LABS: Blood Urea Nitrogen* 18 mg/dL (5-24); Creatinine* 0.9 mg/dL (0.5-1.5); Estimated Glomerular Filt Rate 87 ml/min
[2025-04-06 11:39] LABS: Anion Gap 13 mEq/L (7-15); Calcium* 9.7 mg/dL (8.4-10.6); Carbon Dioxide* 28 mmol/L (20-32); Glucose* 91 mg/dL (60-115)
[2025-04-06 11:56] LABS: Potassium* 4.2 mmol/L (3.6-5.1)
== END 2025-04-06 09:38 | disposition home or self-care (01) ==
LOC: NPINS 09:38
PROVIDERS: PCP Family Medicine; Visit Provider Internal Medicine Nephrology
DX: R39.89 Other symptoms and signs involving the genitourinary system (principal); R80.9 Proteinuria, unspecified
CPT/HCPCS: 80048; 81001; 82043; 82570; 84156; 87086